=== PATIENT | male | born 1980 | race African-American/Black ===

== ENCOUNTER 2019-12-10 12:09 | Emergency (ER) | payer MEDICAID ==
[~2019-12-10] VITALS: Ht 170.2 cm; Wt 71.8 kg
[2019-12-10] MEDS ORDERED: OMEP20 PO (12:56)
[2019-12-10] MEDS ORDERED: KETOROLAC TROMETHAMINE 30 MG/ML VIAL IM ONE (14:30)
[2019-12-10] MEDS ORDERED: METHOCARBAMOL 500 MG TABLET PO ONE (14:30)
[2019-12-10] MEDS ORDERED: LIDOCAINE 5% TRANSDERMAL PATCH TD ONE (14:30)
[2019-12-10 16:37] VITALS: BP 124/76
== END 2019-12-10 16:39 | disposition home or self-care (01) ==
LOC: EMS 12:10
DX: M54.41 Lumbago with sciatica, right side (principal); R03.0 Elevated blood-pressure reading, without diagnosis of hypertension
CPT/HCPCS: 96372; 99283; J1885

== ENCOUNTER 2020-10-05 14:30 | Emergency (ER) | payer MEDICAID ==
[~2020-10-05] VITALS: Ht 172.7 cm; Wt 70.5 kg
[~2020-10-05 14:30] MED LIST: OMEP20 PO
[2020-10-05] MEDS ORDERED: GABA-1181 PO (14:34)
[2020-10-05] MEDS ORDERED: LIDOCAINE 5% TRANSDERMAL PATCH TD ONE (16:30)
[2020-10-05] MEDS ORDERED: KETOROLAC TROMETHAMINE 30 MG/ML VIAL IM ONE (16:30)
[2020-10-05] MEDS ORDERED: METHOCARBAMOL 500 MG TABLET PO ONE (16:30)
[2020-10-05 16:45] VITALS: BP 126/91
== END 2020-10-05 16:50 | disposition home or self-care (01) ==
LOC: EMS 14:35
DX: M54.41 Lumbago with sciatica, right side (principal)
CPT/HCPCS: 96372; 99283; J1885